=== PATIENT | male | born 1950 | race Caucasian/White ===

== ENCOUNTER 2020-02-19 13:33 | Emergency (ER) | payer MEDICARE, BC ==
[~2020-02-19] VITALS: Ht 182.9 cm; Wt 88.6 kg
[2020-02-19 14:13] VITALS: BP 142/95
[2020-02-19] MEDS ORDERED: ketorolac tromethamine 15mg/ml inj. IM ONE (14:40)
[2020-02-19] MEDS ORDERED: orphenadrine citrate 60mg/2ml inj. IM ONE (14:40)
[2020-02-19] MEDS ORDERED: DICL100G30 TOP (14:41)
[2020-02-19] MEDS ORDERED: METH-360 PO (14:41)
== END 2020-02-19 15:20 | disposition home or self-care (01) ==
LOC: ER 13:33
DX: M54.5 Low back pain (principal); G89.29 Other chronic pain; Z79.899 Other long term (current) drug therapy
CPT/HCPCS: 96372; 99284; J1885; J2360